=== PATIENT | male | born 1950 | race Caucasian/White ===

== ENCOUNTER 2018-05-23 03:35 | Emergency (ER) | payer BC, OTHER ==
[2018-05-23 03:42] VITALS: BMI 27.3
[2018-05-23] MEDS ORDERED: DiphenhydrAMINE 50 mg/ml Inj ONE (03:50)
[2018-05-23 03:56] VITALS: TEMP 97.8
--- NOTE | 2018-05-23 03:59 | ED PDOC ---
Arrival/HPI - General Time Seen by Provider: 05/23/18 03:44 Historian: Patient - History of Present Illness Narrative History of Present Illness (Text): 05/23/18 03:49 67 year old male, with no significant past medical history, presents to the emergency department with an allergic reaction. Patient states he had some lobster bisque, which he has had before. Patient states he felt "a little funny" in his mouth. Patient states he then went to sleep and woke up with swollen eye lids. Patient informs having slightly swollen lips as well. Patient denies any shortness of breath or difficulty breathing. Patient also denies any fevers, chills, headache, dizziness, chest pain, cough, diaphoresis, abdominal pain, nausea, vomiting, diarrhea, back pain, neck pain, or any other complaint. Time/Duration: 1 hour Symptom Onset: Gradual Symptom Course: Unchanged Activities at Onset: Light, Sleeping Context: Home Past Medical History - Provider Review Nursing Documentation Reviewed: Yes Family/Social History - Physician Review Nursing Documentation Reviewed: Yes Family/Social History: No Known Family HX Allergies/Home Meds Allergies/Adverse Reactions: Allergies Penicillins Allergy (Verified 05/23/18 03:43) RASH Home Medications: Home Meds Medication Instructions Recorded Confirmed Aspirin 81 mg PO DAILY 12/14/14 05/23/18 Lisinopril 10 mg PO DAILY 12/14/14 05/23/18 Dutasteride/Tamsulosin HCl [Simona 1 tab PO DAILY 05/23/18 05/23/18 0.5-0.4 mg Capsule] MetFORMIN [glucoPHAGE] 1,000 mg PO BID 05/23/18 05/23/18 Review of Systems - Physician Review All systems were reviewed & negative as marked: Yes - Review of Systems Respiratory: absent: SOB Neurological: absent: Dizziness Physical Exam - Physical Exam Narrative Physical Exam (Text): 05/23/18 03:59 Constitutional: No acute distress. Head: Normocephalic. Atraumatic. Eyes: PERRL. ENT: Moist mucous membranes. No drooling. Airway patent. Neck: Supple. Cardiovascular: Regular rate. Chest: No tenderness. No stridor. No wheezing. Respiratory: Clear to auscultation bilaterally. GI: Soft. Nontender. Nondistended. Back: No CVA tenderness. Musculoskeletal: No tenderness or swelling of extremities. Skin: No rash. Neurologic: Alert, no focal deficit. Medical Decision Making ED Course and Treatment: 05/23/18 04:04 Impression: 67 year old male presents with allergic reaction. Plan: -- CMP -- CBC -- Benadryl -- Pepcid -- Solumedrol -- Reassess and disposition Prior Visits: Notes and results from previous visits were reviewed. Progress Notes: Patient felt better with treatment without any worsening of oral swelling. Will discharge, continue meds, f/u PMD, return to ED immediately for worsening swelling or difficulty breathing. - Scribe Statement The provider has reviewed the documentation as recorded by the Tatyibe Ehsan Bass Provider Scribe Attestation: All medical record entries made by the Scribe were at my direction and personally dictated by me. I have reviewed the chart and agree that the record accurately reflects my personal performance of the history, physical exam, medical decision making, and the department course for this patient. I have also personally directed, reviewed, and agree with the discharge instructions and disposition. Disposition/Present on Arrival - Present on Arrival Any Indicators Present on Arrival: No - Disposition Have Diagnosis and Disposition been Completed?: Yes Diagnosis: Allergic reaction Disposition: HOME/ ROUTINE Disposition Time: 05:23 Patient Plan: Discharge Patient Problems: Current Active Problems Problem Status Onset Allergic reaction Acute Condition: GOOD Discharge Instructions (ExitCare): Angioedema, Anaphylaxis (DC) Prescriptions: DiphenhydrAMINE [Benadryl] 2 cap PO Q8 #25 cap Famotidine [Pepcid] 1 tab PO BID #14 tab Prednisone [Deltasone] 3 tab PO DAILY #12 tablet Referrals: Tico Mora MD [Family Provider] - Follow up with primary
[2018-05-23] MEDS ORDERED: Sodium Chloride 0.9% 1,000 ML IV STA (04:02)
[2018-05-23] MEDS ORDERED: DiphenhydrAMINE 50 mg/ml Inj IVP STA (04:02)
[2018-05-23 04:28] LABS: BASO # 0.02 K/mm3 (0.0-2.0); BASO % 0.2 % (0.0-3.0); EOS # 0.2 (0.0-0.7); EOS % 2.1 % (1.5-5.0); HEMOGLOBIN 16.4 g/dL (14.0-18.0); LYMPH # 2.6 (1.2-3.4); LYMPH % 31.1 % (22.0-35.0); MEAN CORPUSCULAR HEMOGLOBIN 30.4 pg (25.0-35.0); MEAN CORPUSCULAR HGB CONC 33.7 g/dl (31.0-37.0); MEAN PLATELET VOLUME 11.1 fl (7.0-11.0); MONO # 0.8 (0.1-0.6); MONO % 9.6 % (1.0-6.0); RBC 5.4 10^6/uL (3.5-6.1); RED CELL DISTRIBUTION WIDTH 13.6 % (11.5-14.5); WHITE BLOOD COUNT 8.2 10^3/uL (4.5-11.0)
[2018-05-23 04:31] LABS: ALB/GLOB RATIO 1.4 (1.1-1.8); ALBUMIN 4.6 g/dL (3.0-4.8); ALT/SGPT 30 U/L (7-56); AST/SGOT 26 U/L (17-59); BLOOD UREA NITROGEN 16 mg/dL (7-21); CALCIUM 9.4 mg/dL (8.4-10.5); GFR NON-AFRICAN AMERICAN > 60
[2018-05-23 06:08] VITALS: BP 161/92; PULSE 75; RESP 18; O2SAT 100
== END 2018-05-23 05:30 | disposition home or self-care (01) ==
LOC: ED 03:35
DX: T78.40XA Allergy, unspecified, initial encounter (principal); X58.XXXA Exposure to other specified factors, initial encounter
CPT/HCPCS: 80053; 85025; 96374; 96375; 99283; J1200; J2930; J7030